=== PATIENT | female | born 1985 | race Caucasian/White ===

== ENCOUNTER 2016-09-23 00:14 | Emergency (ER) | payer OTHER ==
[~2016-09-23] VITALS: Ht 154.9 cm; Wt 61.5 kg
[~2016-09-23 00:14] MED LIST: ACET325T33 PO; AUG875 PO; AZIT250T94 PO
[2016-09-23 00:18] VITALS: Ht 154.9 cm; Wt 61.5 kg
[2016-09-23 01:12] LABS: ADD SCAN DIFF NO
[2016-09-23 01:15] LABS: BASOPHILS % 0.5 % (0.0-2.0); EOSINOPHILS # 0.2 10^3/ul (0.0-0.5); EOSINOPHILS % 2.2 % (0.0-7.0); HEMOGLOBIN 11.7 g/dl (12.0-16.0); LYMPHOCYTES # 1.8 10^3/ul (0.8-2.9); LYMPHOCYTES % 21.9 % (15.0-51.0); MEAN CORPUSCULAR HEMOGLOBIN 27.5 pg (29.0-33.0); MEAN CORPUSCULAR HGB CONC 33.4 g/dl (32.0-37.0); MEAN CORPUSCULAR VOLUME 82.4 fl (82.0-101.0); MEAN PLATELET VOLUME 9.6 fl (7.4-10.4); MONOCYTE # 0.4 10^3/ul (0.3-0.9); MONOCYTES % 4.8 % (0.0-11.0); NEUTROPHIL # 5.7 10^3/ul (1.6-7.5); NEUTROPHILS % 70.2 % (39.0-77.0); PLATELET COUNT 204 10^3/UL (140-415); RED BLOOD COUNT 4.25 10^6/ul (4.20-5.40); RED CELL DISTRIBUTION WIDTH 12.2 % (11.5-14.5); WHITE BLOOD COUNT 8.1 10^3/ul (4.8-10.8)
[2016-09-23 01:21] LABS: ADD UMIC YES; URINE BILIRUBIN (Dip) NEGATIVE (NEGATIVE); URINE BLOOD (Dip) 3+ (NEGATIVE); URINE COLOR LT. YELLOW (YELLOW); URINE GLUCOSE (Dip) NEGATIVE (NEGATIVE); URINE KETONES (Dip) NEGATIVE (NEGATIVE); URINE LEUKOCYTE ESTERASE (Dip) 1+ (NEGATIVE); URINE NITRITE (Dip) NEGATIVE (NEGATIVE); URINE TOTAL PROTEIN (Dip) NEGATIVE (NEGATIVE); URINE UROBILINOGEN (Dip) 0.2 E.U./dL (0.1-1.0)
[2016-09-23 01:35] LABS: SQUAMOUS EPITHELIAL CELL,UR FEW; URINE RBCS 25-50 /HPF (0)
--- NOTE | 2016-09-23 02:45 | RADRPT ---
PROCEDURE: US OB. CLINICAL INDICATION: Vaginal hemorrhage. TECHNIQUE: Transabdominal and transvaginal views of the pelvis are available for review. COMPARISON: No prior studies are available for comparison. FINDINGS: [place]-rump length:1.21 cm Gestational sac: 2.21 cm Ultrasound estimated gestational age:7 weeks and 2 days. 05/10/2017. No ovarian or adnexal mass lesion is seen. There is no free fluid. Cardiac motion is at 123 beats pe r minute. Small subchorionic hemorrhage is seen. Heterogeneous structure to gestational sac measures about 35 mm, and this may represent a fibroid. Differential considerations include demise of a twin. IMPRESSION: 1. Single live intrauterine with an estimated gestational age of 7 weeks and 2 days. age. 2. Estimated date of delivery is 05/10/2017. 3. Likely small subchorionic hemorrhage. 4. Heterogeneous structure adjacent to the gestational sac measures about 35 mm, otherwise nonspeci fic. This may represent a fibroid. 5. Recommend serial quantitative Beta HCG and ultrasound follow-up. RPTAT: [facility] Physician Michael Date Time Electronically viewed and signed by Physician Michael on 09/23/2016 02:44 RS/
[2016-09-23] MEDS ORDERED: NITROFURANTOIN (SR) 100 MG CAP PO STA (02:52)
[2016-09-23] MEDS ORDERED: CLINDAMYCIN 300 MG CAP PO STA (03:12)
[2016-09-23] MEDS ORDERED: CLIN-73 PO (03:18)
--- NOTE | 2016-09-23 03:29 | ERD ---
ER Documentation Chief Complaint Date/Time DATE: 09/23/16 TIME: 03:25 Chief Complaint pt reports 6 weeks preg bleeding and cramping HPI This is a 31-year-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 Patient states that she has an [facility] at [facility] and her last visit was last Sunday, she states that she was unable to hear the heartbeat at the last visit. Patient states that 2 weeks ago she was diagnosed with a urinary tract infection and she took Macrobid for 7 days. She denies any dysuria, fever, nausea, vomiting, diarrhea. ROS All systems reviewed and are negative except as per history of present illness. Medications Home Meds Active Scripts Clindamycin Hcl* (Clindamycin Hcl*) 300 Mg Capsule, 300 MG PO TID for 7 Days, CAP Prov:CHARLY RUIZ PA-C 09/23/16 Acetaminophen* (Tylenol*) 325 Mg Tablet, 1 TAB PO Q6 Y for PAIN AND OR ELEVATED TEMP, #20 TAB Prov:CHARLY RUIZ PA-C 02/01/15 Azithromycin* (Zithromax*) 250 Mg Tablet, 250 MG PO .ZPACK DIRECTED, #6 TAB TAKE 500 MG (2 TABS) THE FIRST DAY THEN 250 MG (1 TAB) DAYS 2-5 Prov:CHARLY RUIZ PA-C 02/01/15 Amoxicillin-Clavulanate K* (Augmentin*) 875 Mg Tab, 875 MG PO BID for 7 Days, TAB Prov:CHARLY RUIZ PA-C 02/01/15 Allergies Allergies: Uncoded Allergies: CEPHALOSPORIN (Allergy, Unknown, rashes, 10/15/14) PMhx/Soc History of Surgery: Yes (cosmetic ear sx) Anesthesia Reaction: No Hx Neurological Disorder: No Hx Respiratory Disorders: No Hx Cardiac Disorders: No Hx Psychiatric Problems: No Hx Miscellaneous Medical Probl: Yes (migraines) Hx Alcohol Use: No Hx Substance Use: No Hx Tobacco Use: No Smoking Status: Never smoker Physical Exam Vitals Vital Signs Date Time Temp Pulse Resp B/P Pulse Ox O2 Delivery O2 Flow Rate FiO2 09/23/16 00:18 98.6 100 20 114/56 97 Physical Exam Const: [] Head: Atraumatic Eyes: Normal Conjunctiva ENT: Normal External Ears, Nose and Mouth. Neck: Full range of motion..~ No meningismus. Resp: Clear to auscultation bilaterally Cardio: Regular rate and rhythm, no murmurs Abd: Soft, non tender, non distended. Normal bowel sounds Skin: No petechiae or rashes Back: No midline or flank tenderness Ext: No cyanosis, or edema Neur: Awake and alert Psych: Normal Mood and Affect Result Diagram: 09/23/16 0100 Results 24 hrs Laboratory Tests Test 09/23/16 00:49 09/23/16 01:00 Urine Color LT. YELLOW Urine Clarity CLEAR Urine pH 6.5 Urine Specific [place] <=1.005 Urine Ketones NEGATIVE Urine Nitrite NEGATIVE Urine Bilirubin NEGATIVE Urine Urobilinogen 0.2 E.U./dL Urine Leukocyte Esterase 1+ Urine Microscopic RBC 25-50/HPF Urine WBC Clumps FEW Urine Microscopic WBC 10-25/HPF Urine Squamous Epithelial Cells FEW Urine Hemoglobin 3+ Urine Glucose NEGATIVE% Urine Total Protein NEGATIVE White Blood Count 8.110^3/ul Red Blood Count 4.2510^6/ul Hemoglobin 11.7g/dl Hematocrit 35.0% Mean Corpuscular Volume 82.4fl Mean Corpuscular Hemoglobin 27.5pg Mean Corpuscular Hemoglobin Concent 33.4g/dl Red Cell Distribution Width 12.2% Platelet Count 01185^3/UL Mean Platelet Volume 9.6fl Neutrophils % 70.2% Lymphocytes % 21.9% Monocytes % 4.8% Eosinophils % 2.2% Basophils % 0.5% Nucleated Red Blood Cells % 0.0/100WBC Neutrophils # 5.710^3/ul Lymphocytes # 1.810^3/ul Monocytes # 0.410^3/ul Eosinophils # 0.210^3/ul Basophils # 0.010^3/ul Nucleated Red Blood Cells # 0.010^3/ul Beta HCG, Quantitative 83002.0mIU/ml Current Medications Medications (Trade) Dose Ordered Sig/Venkat Route PRN Reason Start Time Stop Time Status Last Admin Dose Admin Nitrofurantoin Macrocrystals (Macrobid) 100 mg ONCE STAT PO 09/23/16 02:52 09/23/16 02:53 DC 09/23/16 03:03 Clindamycin HCl (Cleocin) 300 mg ONCE STAT PO 09/23/16 03:12 09/23/16 03:13 DC 09/23/16 03:23 Procedures/MDM This is a 31-year-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 Differentials include but not limited to threatened versus demise of a twin versus urinary tract infection. I have consider other acute abdominal conditions per patient states that 2 weeks ago she was diagnosed with a urinary tract infection and she took Macrobid for 7 days. Lab work was done, CBC did not show any evidence of leukocytosis or anemia. Beta hCG level was within normal limits at 64,771 Patient's urinalysis showed +1 leukocyte esterase, patient's will be empirically treated for a urinary tract infection. A urine culture was sent out. Since patient recently distant Macrobid and she has a cephalosporin allergy, I have consulted my supervising physician Dr. Luque who suggested for patient to use clindamycin. OB ultrasound results stated: [place]-rump length: 1.21 cm Gestational sac: 2.21 cm Ultrasound estimated gestational age: 7 weeks and 2 days. No ovarian or adnexal mass lesion is seen. There is no free fluid. Cardiac motion is at 123 beats per minute. Small subchorionic hemorrhage is seen. Heterogeneous structure to gestational sac measures about 35 mm, and this may represent a fibroid. Differential considerations include demise of a twin. 1. Single live intrauterine with an estimated gestational age of 7 weeks and 2 days. age. 2. Estimated date of delivery is 05/10/2017. 3. Likely small subchorionic hemorrhage. 4. Heterogeneous structure adjacent to the gestational sac measures about 35 mm , otherwise nonspecific. This may represent a fibroid. 5. Recommend serial quantitative Beta HCG and ultrasound follow-up. I have discussed these diagnostic testing with the patient. Prescriptions have been provided. I discussed with patient to follow-up with her [employer] in 2 days for repeat ultrasound and blood work. Discussed return the ER for any worsening symptoms. Patient understands and agrees with this plan Departure Diagnosis: Primary Impression: Vaginal bleeding in patient at less than 20 weeks ges... Additional Impression: UTI in Condition: Stable Patient Instructions: Understanding Urinary Tract Infections (UTIs), Bleeding During Early Referrals: your doctor Additional Instructions: FOLLOW UP WITH YOUR PRIMARY CARE PHYSICIAN TOMORROW.Return to this facility if you are not improving as expected. Take all medicines as directed. Return to this facility if you are not improving as expected. CHARLY RUIZ PA-C Sep 23, 2016 03:29
[2016-09-23 03:35] VITALS: BP 96/55; PULSE 76; RESP 18; TEMP 98.1
== END 2016-09-23 03:35 | disposition home or self-care (01) ==
LOC: FTE 00:14
DX: O20.9 Hemorrhage in early pregnancy, unspecified (principal); O23.41 Unspecified infection of urinary tract in pregnancy, first trimester; R10.2 Pelvic and perineal pain; Z3A.01 Less than 8 weeks gestation of pregnancy
CPT/HCPCS: 36415; 76801; 76817; 81001; 84702; 85025; 86900; 86901; 87086; Z7502; Z7610; 81003